=== PATIENT | female | born 1985 | race Hispanic/Latino ===

== ENCOUNTER 2016-09-17 15:33 | Emergency (ER) | payer OTHER ==
[2016-09-17 15:52] VITALS: TEMP 98.2; O2SAT 100
[2016-09-17 15:57] VITALS: BMI 18.2
--- NOTE | 2016-09-17 17:25 | ED PDOC ---
Arrival/HPI - General Historian: Patient - History of Present Illness Time/Duration: Prior to Arrival - General Chief Complaint: Substance Abuse Time Seen by Provider: 09/17/16 15:35 - History of Present Illness Narrative History of Present Illness (Text): 09/17/16 17:29 31yr old female presents today brought in by police after being found sleeping in a car. pt denies any complaints states she was just sleeping in the car. pt states around 6am she used one bag of heroin. denies cp or sob. no vomiting/ diarrhea. no abdominal pain. denies dizziness or weakness. denies fever/chills. no other complaints. (Phyllis Laboy) Past Medical History - Provider Review Nursing Documentation Reviewed: Yes - Travel History Have you recently traveled outside [place] w/in the past 3 mons?: No - Tetanus Immunization Tetanus Immunization: Unknown - Psychiatric Hx Substance Use: Yes (heroin) Family/Social History - Physician Review Nursing Documentation Reviewed: Yes Family/Social History: Unknown Family HX Smoking Status: Light Smoker < 10 Cigarettes Daily Hx Alcohol Use: No Hx Substance Use: Yes (heroin) Allergies/Home Meds Allergies/Adverse Reactions: Allergies No Known Allergies Allergy (Verified 09/17/16 15:57) Home Medications: Home Meds Medication Instructions Recorded Confirmed No Known Home Med 09/17/16 09/17/16 Review of Systems - Review of Systems Constitutional: absent: Fatigue, Fevers Respiratory: absent: SOB, Cough Cardiovascular: absent: Chest Pain, Palpitations Gastrointestinal: absent: Abdominal Pain, Nausea, Vomiting Genitourinary Female: absent: Dysuria, Frequency, Hematuria Musculoskeletal: absent: Arthralgias, Back Pain, Neck Pain Neurological: absent: Headache, Dizziness Psychiatric: absent: Anxiety, Depression, Suicidal Ideation Physical Exam Vital Signs Reviewed: Yes Temperature: Afebrile Blood Pressure: Normal Pulse: Regular Respiratory Rate: Normal Appearance: Positive for: Well-Appearing, Non-Toxic, Comfortable Pain Distress: None Mental Status: Positive for: Alert and Oriented X 3 - Systems Exam Head: Present: Atraumatic Mouth: Present: Moist Mucous Membranes Neck: Present: Normal Range of Motion Respiratory/Chest: Present: Clear to Auscultation, Good Air Exchange. No: Respiratory Distress, Accessory Muscle Use Cardiovascular: Present: Regular Rate and Rhythm, Normal S1, S2. No: Murmurs Back: Present: Normal Inspection Upper Extremity: Present: Other (multiple track haider to both arms with erythema or abscess. ) Lower Extremity: Present: Normal Inspection Neurological: Present: GCS=15, Speech Normal Skin: Present: Warm, Dry, Normal Color. No: Rashes Psychiatric: Present: Alert, Oriented x 3 Medical Decision Making ED Course and Treatment: 09/17/16 31yr old female presents today in police custody after being found asleep in a car after using heroin at 6am. pt without any complaints. stable vitals. alert and oriented. will d/c into police custody 09/17/16 17:57 pt reassessment; vitals stable; alert and oriented; no distress. impression; heroin use increase fluids follow up with the primary care physician within the next 2 days return if symptoms worsen,persist or if new symptom develop. Pt is medically cleared for incarceration (Phyllis Laboy) I was available for consultation during PA evaluation. The chart was reviewed by me, and I agree with disposition. The documented history was done by the physician proc tech. The documented physical exam was done by the physician proc tech. The documented procedures were done by the physician proc tech. (Rod Rutherford) Disposition/Present on Arrival - Present on Arrival Any Indicators Present on Arrival: No History of DVT/PE: No History of Uncontrolled Diabetes: No Urinary Catheter: No History of Decub. Ulcer: No History Surgical Site Infection Following: None - Disposition Have Diagnosis and Disposition been Completed?: Yes Disposition Time: 17:57 Patient Plan: Discharge - Disposition Diagnosis: Heroin abuse Disposition: HOME/ ROUTINE Condition: GOOD Additional Instructions: increase fluids follow up with the primary care physician within the next 2 days return if symptoms worsen,persist or if new symptom develop. Pt is medically cleared for incarceration Referrals: PCP,NO [Primary Care Provider] - Follow up with primary Juan R Guallpa MD [Staff Provider] - Follow up with primary
[2016-09-17 18:05] VITALS: BP 128/62; PULSE 77; RESP 16
== END 2016-09-17 18:05 | disposition home or self-care (01) ==
LOC: ED 15:33
DX: F11.10 Opioid abuse, uncomplicated (principal)